=== PATIENT | female | born 1970 | race Caucasian/White ===

== ENCOUNTER 2018-05-31 08:53 | Outpatient (CLI) | payer OTHER ==
--- NOTE | 2018-05-31 10:00 | MRI ---
[facility] lumbar spine noncontrast: HISTORY: Lumbar radiculopathy. Right leg and back pain. COMPARISON: None FINDINGS: Appropriate T1 marrow signal intensity of the lumbar vertebra. Lumbar spine vertebral body height is maintained. There is no fracture. No significant STIR hyperintensity to suggest vertebral body edema or ligamentous injury. 3 mm of anterolisthesis of L4 upon L5 Symmetric signal intensity of the paraspinal muscles. Appropriate signal intensity visualized solid o rgans Conus medullaris terminates at the T12-L1 disc space level T12-L1:Adequate disc hydration. No significant central canal stenosis or neural foraminal narrowing L1-2:Adequate disc hydration. No significant central canal stenosis or neural foraminal narrowing. L2-3:Adequate disc hydration. No significant central canal stenosis or foraminal narrowing. L3-4:Minimal desiccation without significant loss of disc space height. No significant central canal stenosis. Minimal ligament flavum thickening. Mild bilateral foraminal narrowing. L4-5:Mild loss of disc space height. No significant central canal stenosis. Mild bilateral facet hype rtrophy. Mild to moderate bilateral foraminal narrowing. L5-S1:Mild to moderate loss of disc space height. No significant stenosis of the thecal sac or left s ubarticular zone. There is a right subarticular disc protrusion. Mass effect with partial obscuration traversing right S1 nerve root. Mild bilateral foraminal narrowing. IMPRESSION: Narrowing of the right subarticular zone at L5-S1 with partial obscuration of the traversing right S 1 nerve root. Transcribed Date/Time: 05/31/2018 10:06 AM
== END 2018-05-31 08:54 | disposition home or self-care (01) ==
LOC: MRI 08:53
PROVIDERS: ATTEND Neurological Surgery
DX: M54.16 Radiculopathy, lumbar region (principal); M48.07 Spinal stenosis, lumbosacral region
CPT/HCPCS: 72148